=== PATIENT | male | born 1970 | race Caucasian/White ===

== ENCOUNTER → 2016-08-03 | Outpatient (CLI) | payer BC | END | disposition home or self-care (01) | LOC: CFH 06:34 | PROVIDERS: ATTEND Physician Assistant | DX: B18.2 Chronic viral hepatitis C (principal); R94.5 Abnormal results of liver function studies | CPT/HCPCS: 76700 ==

== ENCOUNTER 2019-10-07 13:29 | Emergency (ER) | payer BC, MEDICAID ==
[~2019-10-07] VITALS: Ht 175.3 cm; Wt 87.8 kg
[2019-10-07 13:30] VITALS: BP 148/75
[2019-10-07] MEDS ORDERED: ALBUTEROL/IPRATROPIUM 2.5MG/0.5MG, 3 ML NPPB ONE (14:00)
[2019-10-07] MEDS ORDERED: ALBUTEROL/IPRATROPIUM 2.5MG/0.5MG, 3 ML ONE (14:06)
--- NOTE | 2019-10-07 14:10 | NUR ---
PT RESTING IN [facility]. RECEIVEING DUP NEB TREATMENT. PT TOLERATING WELL
--- NOTE | 2019-10-07 15:19 | NUR ---
PT REPORTS BREATHING IMPROVEMENT AFTER DUONEB TREATMENT
== END 2019-10-07 16:09 | disposition home or self-care (01) ==
LOC: ED 15:40
DX: R06.00 Dyspnea, unspecified (principal); R05 Cough; R09.81 Nasal congestion; J45.909 Unspecified asthma, uncomplicated
CPT/HCPCS: 71046; 94640; 99283; 99285